=== PATIENT | female | born 1995 | race Caucasian/White ===

== ENCOUNTER 2021-01-14 15:16 | Emergency (ER) | payer BC ==
[~2021-01-14] VITALS: Ht 162.6 cm; Wt 56.7 kg
[2021-01-14] MEDS ORDERED: TRAMADOL100 MG PO (15:28)
[2021-01-14] MEDS ORDERED: TIZANIDINE HCL4 M1 PO (15:28)
[2021-01-14] MEDS ORDERED: CELEXA 10 MG TA10 M1 PO (15:28)
[2021-01-14] MEDS ORDERED: ALPRAZOLAM XR3 MG PO (15:28)
[2021-01-14] MEDS ORDERED: RIZATRIPTAN5 MG PO (15:29)
[2021-01-14] MEDS ORDERED: ADDERALL 20 MG20 MG PO (15:29)
[2021-01-14 16:18] VITALS: BP 121/80
== END 2021-01-14 16:19 | disposition home or self-care (01) ==
LOC: M.ERS 15:16
DX: S62.346A Nondisplaced fracture of base of fifth metacarpal bone, right hand, initial encounter for closed fracture (principal); Z79.899 Other long term (current) drug therapy; Z88.8 Allergy status to other drugs, medicaments and biological substances; W22.01XA Walked into wall, initial encounter; Y93.89 Activity, other specified; Y92.89 Other specified places as the place of occurrence of the external cause; Y99.9 Unspecified external cause status

== ENCOUNTER 2021-04-20 21:28 | Emergency (ER) | payer OTHER, BC ==
[~2021-04-20] VITALS: Ht 162.6 cm; Wt 57.1 kg
[~2021-04-20 21:28] MED LIST: ADDERALL 20 MG20 MG PO; ALPRAZOLAM XR3 MG PO; CELEXA 10 MG TA10 M1 PO; RIZATRIPTAN5 MG PO; TIZANIDINE HCL4 M1 PO; TRAMADOL100 MG PO
[2021-04-20] MEDS ORDERED: NEURONTIN300 MG PO (21:41)
[2021-04-20] MEDS ORDERED: TIZANIDINE HCL2 M1 PO (21:41)
[2021-04-21 00:39] LABS: HEMATOCRIT 40.8 % (37.0-47.0); HEMOGLOBIN 13.6 gm/dL (12.0-15.0); MCH 29.3 pg (26.0-34.0); MCHC 33.2 g/dL (28.0-37.0); MCV 88.1 fL (80.0-100.0); MPV 8.5 fl. (7.2-11.1); RBC 4.63 mil/uL (4.20-5.00); RDW-CV 12.7 % (10.5-14.5); WBC 11.1 thou/uL (4.0-11.0)
[2021-04-21 00:50] LABS: CALCIUM 9.1 mg/dL (8.5-10.1); CREATININE 0.6 mg/dL (0.6-1.3); POTASSIUM 3.5 mmol/L (3.5-5.1)
[2021-04-21] MEDS ORDERED: ACETAMINOPHEN-1 EAC2 PO (04:55)
[2021-04-21] MEDS ORDERED: DICYCLOMINE HCL20 MG PO (04:55)
[2021-04-21 05:08] VITALS: BP 117/76
[2021-04-21 05:14] LABS: URINE BILIRUBIN NEGATIVE (Negative); URINE BLOOD 3+ (Negative); URINE CLARITY SL CLOUDY; URINE COLOR STRAW; URINE GLUCOSE-RANDOM NEGATIVE (Negative); URINE KETONES NEGATIVE (Negative); URINE LEUKOCYTES-REFLEX TRACE (Negative); URINE NITRITE-REFLEX NEGATIVE (Negative); URINE PROTEIN 1+ (Negative); URINE UROBILINOGEN 0.2 E.U./dl (0.2-1.0)
[2021-04-21 05:19] LABS: SQUAMOUS 4-10 Moderate /LPF (0-3); URINE WBC-REFLEX 0-5 Rare /HPF (0-5)
[2021-04-21 05:20] LABS: BACTERIA-REFLEX 1-9 Few /HPF (None Seen); CASTS None Seen /LPF (None Seen); CRYSTALS None Seen /LPF (None Seen); MUCUS 0-3 Light strn/LPF (None Seen); URINE RBC >20 Many /HPF (0-2)
== END 2021-04-21 05:10 | disposition home or self-care (01) ==
LOC: M.ERS 21:28
PROVIDERS: Personal Emergency Response Attendant
DX: G89.28 Other chronic postprocedural pain (principal); R10.30 Lower abdominal pain, unspecified; G43.909 Migraine, unspecified, not intractable, without status migrainosus; E28.2 Polycystic ovarian syndrome; Z88.8 Allergy status to other drugs, medicaments and biological substances

== ENCOUNTER 2021-04-27 00:28 | Emergency (ER) | payer OTHER, BC ==
[~2021-04-27] VITALS: Ht 165.1 cm; Wt 52.2 kg
[~2021-04-27 00:28] MED LIST changes: +ACETAMINOPHEN-1 EAC2 PO; +DICYCLOMINE HCL20 MG PO; +NEURONTIN300 MG PO; +TIZANIDINE HCL2 M1 PO
[2021-04-27] MEDS ORDERED: MEDROLDOSEPACK PO (01:41)
[2021-04-27] MEDS ORDERED: MOBIC15 MG PO (01:41)
[2021-04-27 02:19] VITALS: BP 106/71
== END 2021-04-27 02:19 | disposition home or self-care (01) ==
LOC: M.ERS 00:28
DX: G89.29 Other chronic pain (principal); M54.5 Low back pain; F41.9 Anxiety disorder, unspecified; G43.909 Migraine, unspecified, not intractable, without status migrainosus; Z79.891 Long term (current) use of opiate analgesic; Z79.899 Other long term (current) drug therapy; Z88.8 Allergy status to other drugs, medicaments and biological substances

== ENCOUNTER 2021-05-01 16:46 | Emergency (ER) | payer OTHER, BC ==
[~2021-05-01] VITALS: Ht 162.6 cm; Wt 57.1 kg
[~2021-05-01 16:46] MED LIST changes: +MEDROLDOSEPACK PO; +MOBIC15 MG PO
[2021-05-01] MEDS ORDERED: HYDROCODON-ACE1 EAC7 PO (17:33)
[2021-05-01 17:57] VITALS: BP 125/85
== END 2021-05-01 17:57 | disposition home or self-care (01) ==
LOC: M.ERS 16:46
DX: G89.29 Other chronic pain (principal); M54.5 Low back pain; M54.32 Sciatica, left side; M54.31 Sciatica, right side; F41.9 Anxiety disorder, unspecified; G43.909 Migraine, unspecified, not intractable, without status migrainosus; Z98.890 Other specified postprocedural states; Z79.891 Long term (current) use of opiate analgesic; Z79.1 Long term (current) use of non-steroidal anti-inflammatories (NSAID); Z79.899 Other long term (current) drug therapy; Z88.8 Allergy status to other drugs, medicaments and biological substances

== ENCOUNTER 2021-05-11 01:38 | Emergency (ER) | payer OTHER, BC ==
[~2021-05-11] VITALS: Ht 162.6 cm; Wt 57.1 kg
[~2021-05-11 01:38] MED LIST changes: +HYDROCODON-ACE1 EAC7 PO
[2021-05-11 02:16] VITALS: BP 124/76
== END 2021-05-11 02:18 | disposition home or self-care (01) ==
LOC: M.ERS 01:38
DX: M54.5 Low back pain (principal); G89.29 Other chronic pain; F41.9 Anxiety disorder, unspecified; G43.909 Migraine, unspecified, not intractable, without status migrainosus; Z87.42 Personal history of other diseases of the female genital tract; Z79.899 Other long term (current) drug therapy; Z88.8 Allergy status to other drugs, medicaments and biological substances

== ENCOUNTER 2021-07-05 01:12 | Emergency (ER) | payer OTHER, BC ==
[~2021-07-05] VITALS: Ht 160 cm; Wt 56.7 kg
[2021-07-05] MEDS ORDERED: BACLOFEN 10MG T10 MG PO (02:14)
[2021-07-05 02:49] VITALS: BP 114/98
== END 2021-07-05 02:50 | disposition home or self-care (01) ==
LOC: M.ERS 01:12
DX: G89.29 Other chronic pain (principal); M54.2 Cervicalgia; M54.9 Dorsalgia, unspecified; M79.601 Pain in right arm; F41.9 Anxiety disorder, unspecified; G43.909 Migraine, unspecified, not intractable, without status migrainosus; Z98.890 Other specified postprocedural states; Z87.42 Personal history of other diseases of the female genital tract; Z79.899 Other long term (current) drug therapy; Z88.8 Allergy status to other drugs, medicaments and biological substances

== ENCOUNTER 2021-07-31 00:23 | Emergency (ER) | payer OTHER, BC ==
[~2021-07-31] VITALS: Ht 160 cm; Wt 54.4 kg
[~2021-07-31 00:23] MED LIST changes: +BACLOFEN 10MG T10 MG PO
[2021-07-31 00:44] LABS: URINE BILIRUBIN NEGATIVE (Negative); URINE BLOOD TRACE (Negative); URINE CLARITY CLEAR; URINE COLOR YELLOW; URINE GLUCOSE-RANDOM NEGATIVE (Negative); URINE KETONES NEGATIVE (Negative); URINE LEUKOCYTES-REFLEX NEGATIVE (Negative); URINE NITRITE-REFLEX NEGATIVE (Negative); URINE PROTEIN NEGATIVE (Negative); URINE SPECIFIC GRAVITY >= 1.030 (1.005-1.030); URINE UROBILINOGEN 0.2 E.U./dl (0.2-1.0)
[2021-07-31 00:52] LABS: AMP/METHAMP POSITIVE (Negative); BARBITURATES Negative (Negative); BENZODIAZEPINES Negative (Negative); COCAINE Negative (Negative); METHADONE Negative (Negative); OPIATES Negative (Negative); PCP Negative (Negative); THC POSITIVE (Negative)
[2021-07-31 01:35] VITALS: BP 131/87
== END 2021-07-31 01:35 | disposition home or self-care (01) ==
LOC: M.ERS 00:23
PROVIDERS: Emergency Medicine
DX: M54.12 Radiculopathy, cervical region (principal); M54.16 Radiculopathy, lumbar region; F41.9 Anxiety disorder, unspecified; G43.909 Migraine, unspecified, not intractable, without status migrainosus; Z98.890 Other specified postprocedural states; Z87.42 Personal history of other diseases of the female genital tract; Z88.8 Allergy status to other drugs, medicaments and biological substances; Z79.899 Other long term (current) drug therapy